=== PATIENT | female | born 1990 | race African-American/Black ===

== ENCOUNTER 2019-04-19 12:16 | Emergency (ER) | payer SELFPAY ==
[~2019-04-19] VITALS: Ht 170.2 cm; Wt 57.0 kg
[2019-04-19] MEDS ORDERED: BENZTROPINE MESYLATE 1MG TABLET PO ONE (13:00)
[2019-04-19 14:13] LABS: BASOPHILS % 0.5 % (0.0-2.0); HEMATOCRIT. 36.1 % (36.0-48.0); HEMOGLOBIN. 12.2 g/dL (12.0-16.0); MEAN CORPUSCULAR HEMOGLOBIN 31.2 pg (28.0-32.0); MEAN CORPUSCULAR VOLUME 92.5 fL (81.0-99.0); MEAN PLATELET VOLUME 9.8 fl (7.4-10.4); MONOCYTES % 5.8 % (2.0-8.0); NEUTROPHILS % 58.7 % (40.0-76.0); PLATELET 177 x1000/uL (130-400); RED BLOOD CELL COUNT 3.91 mill/uL (4.2-5.4); RED CELL DISTRIBUTION WIDTH 13.5 % (11.6-14.6)
[2019-04-19 14:16] LABS: CHLORIDE 107 mEq/L (98-107)
[2019-04-19 14:17] LABS: CLARITY URINE CLEAR (CLEAR); COLOR URINE YELLOW (YELLOW); KETONES URINE NEGATIVE (NEGATIVE); LEUKOCYTE ESTERASE URINE NEGATIVE (NEGATIVE); NITRITE URINE NEGATIVE (NEGATIVE); OCCULT BLOOD URINE NEGATIVE (NEGATIVE); PH URINE 6.5 (4.5-8.0); PROTEIN URINE NEGATIVE (NEGATIVE); SPECIFIC GRAVITY URINE 1.007 (1.005-1.030); UROBILINOGEN URINE 0.2 E.U./dL (0.2-1.0)
[2019-04-19 14:18] LABS: INR 1.1; PROTHROMBIN TIME 11.7 sec (9.6-11.0)
[2019-04-19 15:39] VITALS: BP 114/61
== END 2019-04-19 15:41 | disposition home or self-care (01) ==
LOC: ER 12:16
DX: R25.1 Tremor, unspecified (principal); R62.50 Unspecified lack of expected normal physiological development in childhood
CPT/HCPCS: 36415; 81025; 82962; 99283